=== PATIENT | female | born 1955 | race Caucasian/White ===

== ENCOUNTER 2021-12-26 15:06 | Emergency (ER) | payer BC ==
[2021-12-26] MEDS ORDERED: IBUPROFEN600 MG PO (17:43)
[2021-12-26 17:51] VITALS: BP 155/74
== END 2021-12-26 17:55 | disposition home or self-care (01) | DRG 605 ==
LOC: ED 15:06
DX: S20.212A Contusion of left front wall of thorax, initial encounter (principal); S80.02XA Contusion of left knee, initial encounter; W01.0XXA Fall on same level from slipping, tripping and stumbling without subsequent striking against object, initial encounter; Y93.E9 Activity, other interior property and clothing maintenance; Y92.008 Other place in unspecified non-institutional (private) residence as the place of occurrence of the external cause